=== PATIENT | male | born 1980 | race Caucasian/White ===

== ENCOUNTER 2020-10-14 16:39 | Emergency (ER) | payer SELFPAY ==
[~2020-10-14] VITALS: Ht 177.8 cm; Wt 70.0 kg
--- NOTE | 2020-10-14 17:31 | NUR ---
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
--- NOTE | 2020-10-14 17:33 | NUR ---
PT SITTING UP IN BED, RESPIRATIONS EVEN AND UNLABORED ON RA. NAD NOTED AT THIS TIME. PT C/O SORE THROAT X3 DAYS. WHITE SPOTS ON BILATERAL TONSILS. AWAITING ERMD EVAL.
[2020-10-14] MEDS ORDERED: SODIUM CHLORIDE FLUSH 10ML SYR IVF ONE (18:00)
[2020-10-14] MEDS ORDERED: SODIUM CHLORIDE 0.9% 1,000ML IVBOLUS ONE (18:00)
[2020-10-14] MEDS ORDERED: AMPICILLIN/SULBACTAM 3 GM in SODIUM CHLORIDE 0.9% 100 ML IV ONE (18:00)
[2020-10-14] MEDS ORDERED: DEXAMETHASONE 4 MG/ML, 1ML IVPush ONE (18:00)
[2020-10-14] MEDS ORDERED: DEXAMETHASONE 4 MG/ML, 1ML ONE (18:09)
--- NOTE | 2020-10-14 18:34 | NUR ---
IVF INFUSING PER EMAR. NAD NOTED AT THIS TIME. SPO2 MONITORING IN PLACE. PT HAS CALL LIGHT IN REACH. SIDE RAILS UP.
[2020-10-14 18:41] LABS: BASOPHILS % (AUTO) 0 % (0-1); EOSINOPHILS % (AUTO) 0 % (1-7); LYMPHOCYTES % (AUTO) 10 % (22-44); MEAN CORPUSCULAR HEMOGLOBIN 31.6 pg (27.5-34.5); MEAN CORPUSCULAR HGB CONC 34.1 g/dL (33.2-36.2); MEAN PLATELET VOLUME 7.4 fL (7.4-10.4); MONOCYTES % (AUTO) 13 % (2-9); NEUTROPHILS % (AUTO) 76 % (42-75); PLATELET COUNT 240 x10^3/uL (130-400); RED BLOOD COUNT 5.41 x10^6/uL (4.38-5.82); RED CELL DISTRIBUTION WIDTH 13.3 % (9.4-14.8)
[2020-10-14 18:50] LABS: ALBUMIN 3.9 g/dL (3.4-5.0); ANION GAP 9 mmol/L (5-15); CALCIUM 9.5 mg/dL (8.5-10.1); CHLORIDE 96 mmol/L (98-107); CREATININE 1.13 mg/dL (0.7-1.3)
[2020-10-14 19:00] LABS: MD SCAN
[2020-10-14] MEDS ORDERED: OMNIPAQUE 350 MG/ML, 100ML BOTTLE ONE (19:41)
[2020-10-14 19:44] VITALS: BP 123/70
--- NOTE | 2020-10-14 19:44 | NUR ---
PT RETURNED FROM CT AT THIS TIME. NAD NOTED. ABX STILL INFUSING, THEY WERE STOPPED DURING CT EXAMINATION. SIDE RAILS UP, CALL LIGHT IN REACH.
== END 2020-10-14 20:49 | disposition home or self-care (01) ==
LOC: ED 18:53
DX: J02.0 Streptococcal pharyngitis (principal); R42 Dizziness and giddiness; F17.200 Nicotine dependence, unspecified, uncomplicated
CPT/HCPCS: 36415; 70491; 80048; 82040; 85025; 93005; 96365; 96375; 99285; J0295; J1100; J7030; Q9967